=== PATIENT | female | born 1990 | race African-American/Black ===

== ENCOUNTER 2019-04-17 17:48 | Emergency (ER) | payer OTHER ==
[~2019-04-17] VITALS: Ht 147.3 cm; Wt 44.5 kg
[2019-04-17 17:49] VITALS: BP 119/68
[2019-04-17] MEDS ORDERED: METFORMIN HCL500 MG PO (17:54)
[2019-04-17] MEDS ORDERED: IBUPROFEN 600600 M1 PO (19:57)
== END 2019-04-17 20:20 | disposition home or self-care (01) ==
LOC: ER 17:48
DX: S86.812A Strain of other muscle(s) and tendon(s) at lower leg level, left leg, initial encounter (principal); W01.0XXA Fall on same level from slipping, tripping and stumbling without subsequent striking against object, initial encounter; Y92.89 Other specified places as the place of occurrence of the external cause; Y99.0 Civilian activity done for income or pay; Y99.8 Other external cause status

== ENCOUNTER 2019-09-29 20:13 | Emergency (ER) | payer OTHER ==
[~2019-09-29] VITALS: Ht 144.8 cm; Wt 38.5 kg
[~2019-09-29 20:13] MED LIST: IBUPROFEN 600600 M1 PO; METFORMIN HCL500 MG PO
[2019-09-29 22:04] LABS: HEMATOCRIT 32.5 % (37.0-47.0); HEMOGLOBIN 9.6 gm/dL (12.0-15.0); MCH 17.3 pg (26.0-34.0); MCHC 29.5 g/dL (28.0-37.0); MCV 58.7 fL (80.0-100.0); PLATELET COUNT 383 thou/uL (150-400); RBC 5.54 mil/uL (4.20-5.00); RDW 23.4 % (10.5-14.5); WBC 7.3 thou/uL (4.0-11.0)
[2019-09-29 22:05] LABS: CALCIUM 9.2 mg/dL (8.5-10.1); CREATININE 0.7 mg/dL (0.6-1.0); POTASSIUM 4.1 mmol/L (3.5-5.1)
[2019-09-29 22:26] LABS: URINE BILIRUBIN NEGATIVE (Negative); URINE BLOOD NEGATIVE (Negative); URINE CLARITY CLEAR; URINE COLOR YELLOW; URINE GLUCOSE-RANDOM* 2+ (Negative); URINE KETONES NEGATIVE (Negative); URINE LEUKOCYTES-REFLEX NEGATIVE (Negative); URINE NITRITE-REFLEX NEGATIVE (Negative); URINE PROTEIN (DIPSTICK) NEGATIVE (Negative); URINE SPECIFIC GRAVITY 1.025 (1.005-1.035); URINE UROBILINOGEN 0.2 E.U./dl (0.2-1.0)
[2019-09-29] MEDS ORDERED: IRON325 PO (22:26)
[2019-09-29] MEDS ORDERED: PRENATAL PO (22:26)
[2019-09-29] MEDS ORDERED: FLAGYL500 M1 PO (22:34)
[2019-09-29 22:59] LABS: ABSOLUTE NEUTROPHILS 4.2 thou/uL (1.4-8.2)
[2019-09-29 23:14] LABS: HYPOCHROMASIA 1+; MICROCYTES 3+; OVALOCYTES 1+; SCHISTOCYTES FEW
[2019-09-29 23:15] VITALS: BP 110/77
[2019-09-29 23:15] LABS: LARGE PLATELETS OCCASIONAL; POLYCHROMASIA OCCASIONAL; TARGET CELLS 1+
[2019-09-29 23:16] LABS: BURR CELLS 1+
[2019-09-29 23:17] LABS: ANISOCYTOSIS 1+
== END 2019-09-29 23:20 | disposition home or self-care (01) ==
LOC: ER 20:13
PROVIDERS: Physician Assistant
DX: O20.0 Threatened abortion (principal); O99.011 Anemia complicating pregnancy, first trimester; O98.311 Other infections with a predominantly sexual mode of transmission complicating pregnancy, first trimester; E11.9 Type 2 diabetes mellitus without complications; Z3A.01 Less than 8 weeks gestation of pregnancy